=== PATIENT | male | born 1975 | race Caucasian/White ===

== ENCOUNTER 2018-02-15 06:10 | Day surgery (SDC) | payer BC ==
[~2018-02-15] VITALS: Ht 188 cm; Wt 112.0 kg
--- NOTE | ~2018-02-15 | OP ---
PATIENT NAME: NIYAH NIELSON MEDICAL RECORD: [id number] :73 LOCATION:[facility] ADMISSION DATE: SURGEON: MOON GUEVARA MD DATE OF OPERATION: 02/15/2018 SURGEON: Moon Guevara MD ANESTHESIA: General anesthesia by Mp Lim CRNA DIAGNOSIS: 1.5 cm right epididymal head cyst. PROCEDURE: Excision of epididymal cyst. SPECIMENS: Epididymal cyst. BLOOD LOSS: Minimal. CLINICAL HISTORY: This is a 42-year-old male, who noticed a mass in his right hemiscrotum while he was showering. He went to a walk-in clinic and they performed an ultrasound of the scrotum. This noted that he had a "cyst" in the epididymis. No testicular tumors were seen. This cyst has started to bother him and he would like to have it removed. He also has a much smaller one on the left side. He is not allergic to any medications. He was given Ancef front office secretary to the OR. DESCRIPTION OF PROCEDURE: The patient was given induction of general anesthesia in supine position. He was then shaved, prepped and draped. The cyst is palpable and mobile. A 2 cm long incision was made in the median raphe of the scrotum. The skin was infiltrated with 2% lidocaine with epinephrine. We went down into the tunica vaginalis using a #15 scalpel. Finally, the tunica vaginalis was opened and the incision was lengthened using the Metzenbaum scissors. A small amount of hydrocele fluid was removed. We were then able to express the right testicle out of the hemiscrotum. The cyst is very dark in color as if it had an internal hemorrhage previously. It occupies the entire head of the epididymis. Using the Bovie, I managed to enter the plane between the head of the epididymis and the testicle. Eventually, the cyst was entirely excised using the Bovie. It was sent to pathology in formalin. The remaining epididymis was brought back to the location that the head of the epididymis had occupied and tacked down with a suture of 4-0 Vicryl. The testicle was then placed back into its hemiscrotum. The dartos fascia was reapproximated using a running 4-0 Vicryl. Simple interrupted 4-0 Vicryl sutures were used to close the scrotal skin. Fluffs and mesh panties were then applied. The patient will be seen in followup in 1-2 weeks' time. TRANSINT:[id number] Voice Confirmation ID: [id number] DOCUMENT ID: [id number] MOON GUEVARA MD at 1313 CC: [id number] DICTATION DATE: 02/15/18 1029 TIME CHECKER: 02/15/[address] [facility] [place] 02/15/[address] [id number]
[~2018-02-15 06:10] MED LIST: ULORIC80 MG PO
[2018-02-15] MEDS ORDERED: TESTOST CYP INJ 200 IM (07:02)
[2018-02-15 07:10] VITALS: BP 149/78; Ht 188 cm; Wt 112.0 kg
== END 2018-02-15 12:25 | disposition home or self-care (01) ==
LOC: D.OPS 06:10
DX: N50.3 Cyst of epididymis (principal); Z01.812 Encounter for preprocedural laboratory examination

== ENCOUNTER 2018-03-01 22:19 | Emergency (ER) | payer BC ==
[~2018-03-01] VITALS: Ht 188 cm; Wt 109.1 kg
[~2018-03-01 22:19] MED LIST changes: +TESTOST CYP INJ 200 IM
[2018-03-01 22:25] VITALS: Ht 188 cm; Wt 109.1 kg
[2018-03-01] MEDS ORDERED: TYLENOL W/CODEI1 TAB (22:26)
[2018-03-01 22:56] LABS: BASOPHILS 0.1 % (0-2); EOSINOPHILS 0.1 % (0-7); HEMATOCRIT 50.4 % (42.0-54.0); IMMATURE GRANULOCYTES 0.3 % (0-5); LYMPHOCYTES 4.8 % (15-50); MCH 30.7 pg (26.0-34.0); MCHC 33.7 g/dL (31.0-37.0); MCV 91.1 fL (80.0-100.0); MEAN PLATELET VOLUME 10.5 fL (7.4-10.4); MONOCYTES 3.6 % (2-11); NEUTROPHILS 91.1 % (40-80); PLATELET COUNT 204 10x3/uL (130-400); RBC 5.53 10x6/uL (4.20-6.10); RDW 13.7 % (11.5-14.5); WBC 16.5 10x3/uL (4.8-10.8)
[2018-03-01 23:06] LABS: APPEARANCE HAZY (CLEAR); COLOR YELLOW (YELLOW)
[2018-03-01 23:07] LABS: BACTERIA NONE SEEN /hpf (NONE SEEN); BILIRUBIN NEGATIVE (NEGATIVE); EPITHELIAL CELLS 0-5 /hpf (0-5); GLUCOSE NEGATIVE (NEGATIVE); KETONE MODERATE mg/dL (NEGATIVE); MUCUS >1+ /lpf (NONE SEEN); NITRITE NEGATIVE (NEGATIVE); PROTEIN TRACE mg/dL (NEGATIVE); RED CELLS - URINE 25-50 /hpf (0-5); UROBILINOGEN NORMAL (NORMAL); WHITE CELLS - URINE 0-5 /hpf (0-5)
[2018-03-01 23:08] LABS: ALBUMIN 4.1 g/dL (3.4-5.0); ANION GAP 13.6 mmol/L (8-16); BILIRUBIN - TOTAL 0.87 mg/dL (0.2-1.3); CALCIUM 8.8 mg/dL (8.5-10.1); CARBON DIOXIDE 28.1 mmol/L (21.0-32.0); CREATININE - SERUM 1.7 mg/dL (0.6-1.3); POTASSIUM - SERUM 4.7 mmol/L (3.5-5.1); PROTEIN - SERUM 7.3 g/dL (6.4-8.2)
[2018-03-02] MEDS ORDERED: OXYCODONE-APAP1 TAB PO (00:26)
[2018-03-02] MEDS ORDERED: FLOMAX0.4 MG PO (00:26)
[2018-03-02 01:49] VITALS: BP 146/83
== END 2018-03-02 01:51 | disposition home or self-care (01) ==
LOC: D.ER 22:19
PROVIDERS: Family Medicine
DX: N20.0 Calculus of kidney (principal); M54.5 Low back pain

== ENCOUNTER 2018-03-15 09:43 | Day surgery (SDC) | payer BC | END 2018-03-15 15:00 | disposition home or self-care (01) | LOC: D.OPS 09:43 | DX: N20.1 Calculus of ureter (principal) ==

== ENCOUNTER → 2018-03-23 14:57 | Outpatient (CLI) | payer BC ==
[2018-03-15 10:46] VITALS: BMI 31.2
[~2018-03-23 14:57] MED LIST changes: +FLOMAX0.4 MG PO; +OXYCODONE-APAP1 TAB PO; +TYLENOL W/CODEI1 TAB
== END | disposition home or self-care (01) ==
LOC: D.RAD 14:57
DX: N20.0 Calculus of kidney (principal)

== ENCOUNTER 2018-03-29 10:17 | Day surgery (SDC) | payer BC ==
[~2018-03-29] VITALS: Ht 188 cm; Wt 110.7 kg
[2018-03-29 11:32] VITALS: BP 131/80; Ht 188 cm; Wt 110.7 kg
--- NOTE | 2018-03-29 12:55 | NUR ---
REC'D PT FROM LITHO PROCEDURE. NO FAMILY CURRENTLY AT BEDSIDE. LEMON BIG LAGOON AND FL TRAY BROUGHT TO PT. URINAL, URINE STRAINER AND CONTAINER FOR ANY SEDIMENT GIVEN TO PT TO TAKE TO DR GUEVARA.
--- NOTE | 2018-03-29 13:25 | NUR ---
TOLERATED DIET. NO URGE TO VOID AT THIS TIME. FAMILY AT BEDSIDE.
--- NOTE | 2018-03-29 13:55 | NUR ---
STILL NO URGE TO VOID. IV FLUID OPENED AND INFUSING PER PIV WITHOUT DIFFICULTY. MADE PATIENT A GLASS OF ICED TEA.
--- NOTE | 2018-03-29 14:10 | NUR ---
AMBULATED TO BATHROOM AND VOIDED WITHOUT DIFFICULTY. IV DC'D WITH CATHETER INTACT.
--- NOTE | 2018-03-29 14:20 | NUR ---
WRITTEN AND VERBAL DC INST. GIVEN TO PT ALONG WITH RX AND FOLLOW UP APPT WITH SHRUTI GUEVARA AND F/U LUKAS PRIOR TO DOCTOR VISIT. VERBALIZED UNDERSTANDING.
--- NOTE | 2018-03-29 14:35 | NUR ---
DC'D HOME WITH FAMILY VIA PRIVATE VEHICLE. TAKEN TO VEHICLE VIA WC. STABLE AT TIME OF DC.
--- NOTE | 2018-03-29 19:34 | OP ---
PATIENT NAME: NIYAH NIELSON MEDICAL RECORD: [id number] :73 LOCATION:[facility] ADMISSION DATE: SURGEON: NORBERTO GUEVARA MD DATE OF OPERATION: 03/29/2018 SURGEON: Norberto Guevara MD ANESTHESIA: TIVA by Rossi Luciano CRNA DIAGNOSIS: Right proximal ureteral 4-mm stone. PROCEDURE: Right ESWL times 4000 shocks. FINDINGS: Radiodense 4-mm right proximal ureteral stone. BLOOD LOSS: None. CLINICAL HISTORY: This is a 43-year-old male, who had an 8-mm stone in the right kidney. He had a right ureteral stent inserted and lithotripsy was given to him. On followup, he has a 4-mm stone remaining in the right proximal ureter. We are treating this stone fragment today. He was given Ancef air support operations operator to the OR. DESCRIPTION OF PROCEDURE: The patient was given IV sedation. He was targeted in 2 planes with respect to the stone. A 4000 shocks were given to the stone. It was seen to break up somewhat. The patient will be going home today with another prescription for Minneola 5/325 times 20 tablets with no refills. He has Flomax at home. I will see him in followup in the New Year with a KUB. If the KUB then shows no further stones, then his stent can be removed. TRANSINT:[id number] Voice Confirmation ID: [id number] DOCUMENT ID: [id number] NORBERTO GUEVARA MD at 1934 CC: [id number] DICTATION DATE: 03/29/18 1254 ADVERTISING SALES REPRESENTATIVE: 03/29/18 1622 [facility] 03/29/18 [place] [id number] [place] [id number]
== END 2018-03-29 14:35 | disposition home or self-care (01) ==
LOC: D.OPS 10:17
DX: N20.1 Calculus of ureter (principal); Z01.812 Encounter for preprocedural laboratory examination

== ENCOUNTER → 2018-04-11 08:04 | Outpatient (CLI) | payer BC ==
[2018-03-29 11:32] VITALS: BMI 31.4
== END | disposition home or self-care (01) ==
LOC: D.RAD 08:04
DX: N20.0 Calculus of kidney (principal)